=== PATIENT | male | born 1955 | race Caucasian/White ===

== ENCOUNTER 2019-05-02 17:01 | Observation (INO) ==
[2019-05-02] MEDS ORDERED: methylPREDNISolone 125 MG/2 ML VIAL IVP ONE (17:24)
[2019-05-02] MEDS ORDERED: Ipratropium/Albuterol Neb 3 ML IH ONE (17:24)
[2019-05-02] MEDS ORDERED: Ibuprofen 600 MG TABLET PO ONE (17:24)
[2019-05-02 17:53] LABS: Basophils % 0.2 %; Eosinophils # 0.2 K/mcL (0.0-0.6); Eosinophils % 1.4 %; Hematocrit 39.5 % (37.5-50.1); Immature Granulocytes % 0.7 % (0-4); Lymphocytes # 1.8 K/mcL (0.6-4.6); Lymphocytes % 12.7 %; Mean Corpuscular HGB Conc 32.9 g/dL (31.6-35.5); Mean Corpuscular Hemoglobin 28.6 pg (28.0-33.3); Mean Platelet Volume 8.9 fL (9.4-12.4); Monocytes # 1.7 K/mcL (0.0-1.3); Monocytes % 11.7 %; Neutrophils # 10.6 K/mcL (1.6-8.9); Nucleated Red Blood Cells 0.1 /100 WBC (0); Platelet Count 317 K/mcL (140-400); Red Blood Count 4.54 M/mcL (4.19-5.50); Red Cell Distribution Width 13.1 % (11.5-14.5); Segmented Neutrophils % 73.3 %; White Blood Count 14.5 K/mcL (4.3-11.1)
[2019-05-02 18:14] LABS: BUN/Creatinine Ratio 17 (6-26); Blood Urea Nitrogen 15 mg/dL (8-23); Calcium 8.9 mg/dL (8.6-10.3); Carbon Dioxide 29 mEq/L (23-29); Chloride 98 mEq/L (98-107); Glucose 211 mg/dL (70-105); Osmolality,Calculated 289 (280-300); Potassium 4.2 mEq/L (3.5-5.1); Sodium 136 mEq/L (136-145); eGFR For African Americans > 60 (> 60); eGFR For Non-African Americans > 60 (> 60)
[2019-05-02] MEDS ORDERED: Isovue-370 500 ML BOTTLE IVP ONE (18:44)
[2019-05-02] MEDS ORDERED: 0.9 % Sodium Chloride 1,000 ML IVC ONE (18:50)
[2019-05-02] MEDS ORDERED: Azithromycin 500 MG in 0.9 % Sodium Chloride 250 ML IVPB ONE (18:53)
[2019-05-02] MEDS ORDERED: *HR* Enoxaparin 100 MG/ML SYRINGE SQ STA (19:27)
[2019-05-02] MEDS ORDERED: cefTRIAXone 1,000 MG in Water for inj. (sterile) 10 ML IVP ONE (19:28)
[2019-05-02 19:43] LABS: INR 1.4; Prothrombin Time 15.5 Seconds (9.4-12.1)
[2019-05-02 20:00] LABS: Troponin I < 0.03 ng/mL (< 0.04)
[2019-05-02] MEDS ORDERED: *HR* OxyCODONE/APAP 10/325 TABLET PO PRN (20:16)
[2019-05-02] MEDS ORDERED: Naloxone 0.4 MG/ML INJ IVP PRN (20:20)
[2019-05-02] MEDS ORDERED: 0.9 % Sodium Chloride 1,000 ML IVC SCH (20:30)
[2019-05-02 21:41] LABS: ABG Base Excess 0 mEq/L (-2 to 3); ABG HCO3 27 mEq/L (21-27); ABG Oxygen Saturation 86 % (95-98); ABG PCO2 50 mmHg (35-45); ABG PH 7.33 pH Units (7.32-7.45); ABG PO2 55 mmHg (85-104); ABG TCO2 28 mEq/L (20-26)
[2019-05-02] MEDS: Ipratropium/Albuterol Neb 3 ML IH SCH (23:06)
[2019-05-03] MEDS: Gabapentin 300 MG CAPSULE PO SCH ×4 (00:01→20:23)
[2019-05-03] MEDS: Metoprolol 100 MG TABLET PO SCH ×3 (00:01→20:23)
[2019-05-03 01:05] LABS: Bilirubin,Urine Negative (Negative); Blood,Urine Negative (Negative); Clarity,Urine Clear (Clear); Color,Urine Yellow (Yellow); Glucose,Urine (UA) >=1000 mg/dL (Normal); Ketones,Urine 15 mg/dL (Negative); Leukocyte Esterase,Urine Negative (Negative); Nitrite,Urine Negative (Negative); Protein,Urine 30 mg/dL (Neg-Trace); Specific Gravity,Urine > 1.030 (1.010-1.025)
[2019-05-03 01:07] LABS: Basophils % 0.2 %; Eosinophils % 0.1 %; Lymphocytes # 0.9 K/mcL (0.6-4.6); Lymphocytes % 7.6 %; Mean Corpuscular HGB Conc 33.3 g/dL (31.6-35.5); Mean Corpuscular Hemoglobin 29.1 pg (28.0-33.3); Mean Corpuscular Volume 87.2 fL (83.0-100.0); Mean Platelet Volume 9.2 fL (9.4-12.4); Monocytes # 0.2 K/mcL (0.0-1.3); Monocytes % 1.6 %; Neutrophils # 10.4 K/mcL (1.6-8.9); Platelet Count 339 K/mcL (140-400); Red Blood Count 4.47 M/mcL (4.19-5.50); Red Cell Distribution Width 13.1 % (11.5-14.5); Segmented Neutrophils % 89.5 %; White Blood Count 11.7 K/mcL (4.3-11.1)
[2019-05-03 01:08] LABS: Bacteria,Urine None Seen per hpf (None-Few); Hyaline Casts,Urine None Seen per lpf (None-Few); RBC,Urine 0-3 per hpf (0-3); Squamous Epithelial Cell,Urine Moderate per lpf (None-Few); WBC,Urine 0-3 per hpf (0-3)
[2019-05-03 01:23] LABS: Alanine Aminotransferase 22 Units/L (7-52); Albumin 3.5 g/dL (3.5-5.7); Alkaline Phosphatase 57 Units/L (34-104); Aspartate Amino Transferase 22 Units/L (13-39); BUN/Creatinine Ratio 18 (6-26); Bilirubin,Total 0.3 mg/dL (0.3-1.0); Blood Urea Nitrogen 17 mg/dL (8-23); Calcium 8.3 mg/dL (8.6-10.3); Carbon Dioxide 24 mEq/L (23-29); Chloride 102 mEq/L (98-107); Chol/HDL Ratio 6.4 (0-4.9); Cholesterol 108 mg/dL (< 200); Globulin 3.6 g/dL (2.4-3.5); Glucose 349 mg/dL (70-105); HDL Cholesterol 17 mg/dL (40-59); LDL Cholesterol,Calculated 59 mg/dL (0-99); Magnesium 1.9 mg/dL (1.6-2.6); Osmolality,Calculated 299 (280-300); Potassium 4.2 mEq/L (3.5-5.1); Sodium 137 mEq/L (136-145); Total Protein 7.1 g/dL (6.4-8.9); Triglycerides 159 mg/dL (< 150); eGFR For African Americans > 60 (> 60); eGFR For Non-African Americans > 60 (> 60)
[2019-05-03 03:34] LABS: Estimated Average Glucose 229 mg/dl
[2019-05-03] MEDS: Ipratropium/Albuterol Neb 3 ML IH SCH ×4 (04:19→20:52)
[2019-05-03] MEDS: Apixaban 5 MG TABLET PO SCH ×2 (09:29→20:23)
[2019-05-03] MEDS: Fenofibrate 54 MG TABLET PO SCH (09:29)
[2019-05-03] MEDS: cefTRIAXone 1,000 MG in Water for inj. (sterile) 10 ML IVP SCH (09:30)
[2019-05-03] MEDS: predniSONE 20 MG TABLET PO SCH (09:30)
[2019-05-03] MEDS: Nicotine 14 MG PATCH.TD24 TD SCH (09:30)
[2019-05-03] MEDS ORDERED: Dextrose Gel 15 GM/37.5 ML TUBE PO PRN ×2 (12:31)
[2019-05-03] MEDS ORDERED: *HR* Dextrose 50 % in Water (Syg) 50 ML SYRINGE IVP PRN (12:31)
[2019-05-03] MEDS ORDERED: D5% in Water 1,000 ML IVC PRN (12:31)
[2019-05-03] MEDS: Insulin LISPRO 300 UNITS/3 ML VIAL SQ SCH (17:30)
[2019-05-03] MEDS ORDERED: Azithromycin 500 MG in 0.9 % Sodium Chloride 250 ML IVPB SCH (19:00)
[2019-05-03] MEDS ORDERED: Insulin DETEMIR 100 UNIT/ML X5UNITS SQ SCH (21:00)
[2019-05-04] MEDS: Ipratropium/Albuterol Neb 3 ML IH SCH ×4 (04:10→22:27)
[2019-05-04 06:10] LABS: Basophils % 0.2 %; Eosinophils % 0.3 %; Hematocrit 37.5 % (37.5-50.1); Hemoglobin 12.2 g/dL (12.9-16.9); Immature Granulocytes % 1.3 % (0-4); Lymphocytes # 1.8 K/mcL (0.6-4.6); Lymphocytes % 14.9 %; Mean Corpuscular HGB Conc 32.5 g/dL (31.6-35.5); Mean Corpuscular Hemoglobin 29.5 pg (28.0-33.3); Mean Corpuscular Volume 90.8 fL (83.0-100.0); Monocytes % 7.9 %; Neutrophils # 9.1 K/mcL (1.6-8.9); Platelet Count 336 K/mcL (140-400); Red Blood Count 4.13 M/mcL (4.19-5.50); Red Cell Distribution Width 12.9 % (11.5-14.5); Segmented Neutrophils % 75.4 %; White Blood Count 12.1 K/mcL (4.3-11.1)
[2019-05-04 06:33] LABS: BUN/Creatinine Ratio 21 (6-26); Blood Urea Nitrogen 15 mg/dL (8-23); Calcium 8.5 mg/dL (8.6-10.3); Carbon Dioxide 30 mEq/L (23-29); Chloride 104 mEq/L (98-107); Glucose 273 mg/dL (70-105); Magnesium 2.2 mg/dL (1.6-2.6); Osmolality,Calculated 309 (280-300); Phosphorous 2.3 mg/dL (2.7-4.5); Potassium 3.9 mEq/L (3.5-5.1); Sodium 144 mEq/L (136-145); eGFR For African Americans > 60 (> 60); eGFR For Non-African Americans > 60 (> 60)
[2019-05-04] MEDS: cefTRIAXone 1,000 MG in Water for inj. (sterile) 10 ML IVP SCH (08:49)
[2019-05-04] MEDS: Insulin DETEMIR 100 UNIT/ML X5UNITS SQ SCH ×2 (08:50→20:22)
[2019-05-04] MEDS: Fenofibrate 54 MG TABLET PO SCH (08:50)
[2019-05-04] MEDS: Metoprolol 100 MG TABLET PO SCH ×2 (08:50→20:21)
[2019-05-04] MEDS: Nicotine 14 MG PATCH.TD24 TD SCH (08:50)
[2019-05-04] MEDS: predniSONE 20 MG TABLET PO SCH (08:50)
[2019-05-04] MEDS: Insulin LISPRO 300 UNITS/3 ML VIAL SQ SCH ×6 (08:50→16:51)
[2019-05-04] MEDS: Apixaban 5 MG TABLET PO SCH ×2 (08:50→20:21)
[2019-05-04] MEDS: Gabapentin 300 MG CAPSULE PO SCH ×3 (08:50→20:21)
[2019-05-04] MEDS: Doxycycline 100 MG CAPSULE PO SCH (20:22)
[2019-05-04] MEDS ORDERED: Insulin LISPRO 300 UNITS/3 ML VIAL SQ SCH (21:00)
[2019-05-05] MEDS ORDERED: Insulin Human Regular 10 UNIT in 0.9 % Sodium Chloride 10 ML IV ONE (02:36)
[2019-05-05] MEDS: Ipratropium/Albuterol Neb 3 ML IH SCH ×2 (04:10→10:02)
[2019-05-05 04:54] LABS: BUN/Creatinine Ratio 18 (6-26); Blood Urea Nitrogen 14 mg/dL (8-23); Calcium 8.7 mg/dL (8.6-10.3); Carbon Dioxide 31 mEq/L (23-29); Chloride 103 mEq/L (98-107); Glucose 115 mg/dL (70-105); Osmolality,Calculated 297 (280-300); Phosphorous 2.9 mg/dL (2.7-4.5); Potassium 3.7 mEq/L (3.5-5.1); Sodium 143 mEq/L (136-145); eGFR For African Americans > 60 (> 60); eGFR For Non-African Americans > 60 (> 60)
[2019-05-05 07:21] VITALS: BP 166/91
[2019-05-05] MEDS: Doxycycline 100 MG CAPSULE PO SCH (08:20)
[2019-05-05] MEDS: Insulin DETEMIR 100 UNIT/ML X5UNITS SQ SCH (08:21)
[2019-05-05] MEDS: Fenofibrate 54 MG TABLET PO SCH (08:21)
[2019-05-05] MEDS: Nicotine 14 MG PATCH.TD24 TD SCH (08:21)
[2019-05-05] MEDS: Gabapentin 300 MG CAPSULE PO SCH (08:21)
[2019-05-05] MEDS: Insulin LISPRO 300 UNITS/3 ML VIAL SQ SCH ×2 (08:21)
[2019-05-05] MEDS: predniSONE 20 MG TABLET PO SCH (08:21)
[2019-05-05] MEDS: Apixaban 5 MG TABLET PO SCH (08:21)
[2019-05-05] MEDS: Metoprolol 100 MG TABLET PO SCH (08:21)
[2019-05-05] MEDS ORDERED: FLU Vac QV 19-20 (6Month+)/PF 0.5 ML SYRINGE IM ONE (10:15)
== END 2019-05-05 12:20 | disposition home or self-care (01) ==
LOC: 2NENU 17:01 → EMEROOARM 17:01 → SUATTDRO 20:15 → 2NENU 22:16
PROVIDERS: ADMIT Internal Medicine; ATTEND Internal Medicine